=== PATIENT | female | born 1970 | race Caucasian/White ===

== ENCOUNTER 2016-09-01 03:47 | Emergency (ER) | payer MEDICAID, OTHER ==
[~2016-09-01] VITALS: Ht 160 cm; Wt 75.0 kg
[~2016-09-01 03:47] MED LIST: CIPR-278 PO; GABA-531 PO; INSU100V12 SQ; LEVE250T55 PO; LISI-662 PO; METF500T4 PO
[2016-09-01 04:02] LABS: GLUCOSE,POINT OF CARE 171 MG/DL (70-110)
[2016-09-01] MEDS ORDERED: BUTA1CAP51 PO (04:06)
[2016-09-01 06:05] VITALS: BP 132/81
== END 2016-09-01 06:44 | disposition home or self-care (01) ==
LOC: EMS 03:48
DX: S46.911A Strain of unspecified muscle, fascia and tendon at shoulder and upper arm level, right arm, initial encounter (principal); S50.12XA Contusion of left forearm, initial encounter; R10.30 Lower abdominal pain, unspecified; G40.909 Epilepsy, unspecified, not intractable, without status epilepticus; E11.65 Type 2 diabetes mellitus with hyperglycemia; I10 Essential (primary) hypertension; Z79.4 Long term (current) use of insulin; Z88.1 Allergy status to other antibiotic agents; W19.XXXA Unspecified fall, initial encounter; Y93.89 Activity, other specified; Y92.89 Other specified places as the place of occurrence of the external cause; Y99.8 Other external cause status
CPT/HCPCS: 82962; 99282; 99283

== ENCOUNTER 2017-03-05 07:57 | Emergency (ER) | payer OTHER ==
[~2017-03-05] VITALS: Ht 165.1 cm; Wt 75.0 kg
[~2017-03-05 07:57] MED LIST changes: +BUTA1CAP51 PO; -CIPR-278 PO
[2017-03-05 08:12] LABS: GLUCOSE,POINT OF CARE 282 MG/DL (70-110)
[2017-03-05 13:53] VITALS: BP 165/92
== END 2017-03-05 13:55 | disposition home or self-care (01) ==
LOC: EMS 07:58
DX: M79.641 Pain in right hand (principal); E11.9 Type 2 diabetes mellitus without complications; I10 Essential (primary) hypertension; Z88.1 Allergy status to other antibiotic agents
CPT/HCPCS: 82962; 99284

== ENCOUNTER 2017-04-25 18:04 | Inpatient (IN) | payer MEDICARE, MEDICAID ==
[~2017-04-25] VITALS: Ht 162.6 cm; Wt 90.3 kg
[~2017-04-25 18:04] MED LIST changes: -BUTA1CAP51 PO; -GABA-531 PO; -INSU100V12 SQ; -LISI-662 PO
[2017-04-25 22:47] LABS: GLUCOSE,POINT OF CARE 112 MG/DL (70-110)
[2017-04-25 22:59] VITALS: BP 123/76
[2017-04-25] MEDS ORDERED: HALOPERIDOL 5 MG TABLET PO PRN (23:15)
[2017-04-25] MEDS ORDERED: LORazepam 2 MG TABLET PO PRN (23:15)
[2017-04-26] MEDS ORDERED: DEXTROSE 50%-WATER 25 GM/50 ML SYRINGE IVP PRN (06:15)
[2017-04-26 06:17] VITALS: BP 137/81
[2017-04-26 06:17] LABS: GLUCOSE COMMENT 1 Doctor Notified; GLUCOSE,POINT OF CARE 141 MG/DL (70-110)
[2017-04-26 06:59] LABS: BASOPHILS # (AUTO) 0.03 K/uL (0.00-0.20); BASOPHILS % (AUTO) 0.3 % (0.0-2.0); EOSINOPHILS # (AUTO) 0.22 K/uL (0.00-0.70); EOSINOPHILS % (AUTO) 2.34 % (1.0-6.0); HEMATOCRIT 34.2 % (36-46); HEMOGLOBIN 10.9 g/dL (12.0-16.0); LYMPHOCYTES # (AUTO) 2.8 K/uL (1.0-4.8); LYMPHOCYTES % (AUTO) 30.3 % (22.0-44.0); MEAN CORPUSCULAR HEMOGLOBIN 24.9 pg (26.0-34.0); MEAN CORPUSCULAR HGB CONC 31.9 G/dL (31.0-37.0); MEAN CORPUSCULAR VOLUME 78 fL (80-100); MONOCYTES # (AUTO) 0.8 K/uL (0.1-1.0); MONOCYTES % (AUTO) 8.5 % (2.0-9.0); NEUTROPHILS # (AUTO) 5.4 K/uL (1.8-7.7); NEUTROPHILS % (AUTO) 58.6 % (40.0-70.0); PLATELET COUNT (AUTO) 236 K/uL (150-450); RED BLOOD CELL COUNT(AUTO) 4.38 MIL/uL (4.00-5.20); RED CELL DISTRIBUTION WIDTH 17.9 % (11.5-14.5); WHITE BLOOD COUNT (AUTO) 9.2 K/uL (4.5-11.0)
[2017-04-26] MEDS: FERROUS SULFATE 325 MG EC TABLET PO SCH ×2 (06:59→18:51)
[2017-04-26] MEDS: MetFORMIN HCL 500 MG TABLET PO SCH ×2 (06:59→18:51)
[2017-04-26] MEDS: GlipiZIDE ER 2.5 MG ER TABLET PO SCH ×2 (07:00→17:09)
[2017-04-26] MEDS: INSULIN ASPART 100 UNITS/ML SQ PRN ×3 (07:03→21:42)
[2017-04-26 07:22] LABS: ALANINE AMINOTRANSFERASE 135 U/L (12-78); ALBUMIN 2.9 g/dL (3.4-5.0); ANION GAP 5 mmol/L (8-16); ASPARTATE AMINOTRANSFERASE 100 U/L (15-37); BILIRUBIN,TOTAL 0.2 mg/dL (0.1-1.0); CALCIUM, TOTAL 9.1 mg/dL (8.8-10.5); CARBON DIOXIDE 27 mmol/L (22-29); CHLORIDE 101 mmol/L (98-107); CHOL/HDL RATIO 3.7 (3.9-5.7); CREATININE 0.87 mg/dL (0.60-1.30); GLOMERULAR FILTR. RATE CALC > 60 mL/min (>60); POTASSIUM 4.6 mmol/L (3.5-5.1); SODIUM SERUM 133 mmol/L (136-145); TOTAL PROTEIN, SERUM 7.8 g/dL (6.4-8.2); UREA NITROGEN, BLOOD 28 mg/dL (7-18)
[2017-04-26 07:36] LABS: HEMOGLOBIN A1C 11.7 % (4.5-6.2)
[2017-04-26 07:46] LABS: RBC MORPHOLOGY COMMENT ABNORMAL RBC MORPH
[2017-04-26 08:55] VITALS: BP 132/82
[2017-04-26] MEDS ORDERED: ACETAMINOPHEN 325 MG TABLET PO PRN (10:45)
[2017-04-26 11:12] LABS: GLUCOSE,POINT OF CARE 80 MG/DL (70-110)
[2017-04-26] MEDS: THIAMINE HCL 100 MG TABLET PO SCH (11:41)
[2017-04-26] MEDS: MULTIVITAMINS, THERAPEUTIC TABLET PO SCH (11:41)
[2017-04-26] MEDS: MUPIROCIN CALCIUM 2% 22 GM OINTMENT NASAL SCH ×2 (11:42→17:09)
[2017-04-26] MEDS: LevETIRAcetam 500 MG TABLET PO SCH ×2 (11:42→17:10)
[2017-04-26] MEDS: PANTOPRAZOLE SODIUM 40 MG DR TABLET PO SCH (11:42)
[2017-04-26] MEDS: LEVOFLOXACIN 500 MG TABLET PO SCH (11:42)
[2017-04-26 17:07] LABS: GLUCOSE COMMENT 1 Received Meds; GLUCOSE,POINT OF CARE 219 MG/DL (70-110)
[2017-04-26 19:36] VITALS: BP 144/75
[2017-04-26] MEDS: CITALOPRAM HYDROBROMIDE 20 MG TABLET PO SCH (21:35)
[2017-04-26 21:40] VITALS: BP 135/68
[2017-04-26 21:42] LABS: GLUCOSE COMMENT 1 Received Meds; GLUCOSE,POINT OF CARE 209 MG/DL (70-110)
[2017-04-27 06:08] LABS: GLUCOSE COMMENT 1 Received Meds; GLUCOSE,POINT OF CARE 147 MG/DL (70-110)
[2017-04-27] MEDS: GlipiZIDE ER 2.5 MG ER TABLET PO SCH ×2 (06:28→17:00)
[2017-04-27] MEDS: FERROUS SULFATE 325 MG EC TABLET PO SCH ×2 (06:28→17:10)
[2017-04-27] MEDS: MetFORMIN HCL 500 MG TABLET PO SCH ×2 (06:28→20:00)
[2017-04-27] MEDS: INSULIN ASPART 100 UNITS/ML SQ PRN ×3 (06:52→21:27)
[2017-04-27 07:12] VITALS: BP 143/71
[2017-04-27] MEDS: IBUPROFEN 400 MG TABLET PO PRN (07:15)
[2017-04-27 07:41] LABS: ANION GAP 7 mmol/L (8-16); CARBON DIOXIDE 25 mmol/L (22-29); CHLORIDE 102 mmol/L (98-107); CREATININE 0.76 mg/dL (0.60-1.30); GLOMERULAR FILTR. RATE CALC > 60 mL/min (>60); POTASSIUM 4.4 mmol/L (3.5-5.1); SODIUM SERUM 134 mmol/L (136-145); UREA NITROGEN, BLOOD 27 mg/dL (7-18)
[2017-04-27] MEDS: LEVOFLOXACIN 500 MG TABLET PO SCH (10:03)
[2017-04-27] MEDS: THIAMINE HCL 100 MG TABLET PO SCH (10:03)
[2017-04-27] MEDS: SERTRALINE HCL 50 MG TABLET PO SCH (10:03)
[2017-04-27] MEDS: LevETIRAcetam 500 MG TABLET PO SCH ×2 (10:03→17:10)
[2017-04-27] MEDS: MULTIVITAMINS, THERAPEUTIC TABLET PO SCH (10:03)
[2017-04-27] MEDS: PANTOPRAZOLE SODIUM 40 MG DR TABLET PO SCH (10:03)
[2017-04-27] MEDS: MUPIROCIN CALCIUM 2% 22 GM OINTMENT NASAL SCH ×2 (10:11→17:10)
[2017-04-27 11:32] LABS: GLUCOSE,POINT OF CARE 222 MG/DL (70-110)
[2017-04-27 12:26] LABS: HEPATITIS Bs ANTIGEN SCREEN P Negative (Negative); HEPATITIS C AB SCREEN <0.1 s/co ratio (0.0-0.9)
[2017-04-27 17:07] LABS: GLUCOSE,POINT OF CARE 94 MG/DL (70-110)
[2017-04-27 17:13] LABS: ADD UA MICROSCOPIC YES; APPEARANCE,URINE CLOUDY (CLEAR); GLUCOSE, URINE (UA) NEGATIVE (NEGATIVE); KETONES,URINE NEGATIVE (NEGATIVE); LEUKOCYTE ESTERASE ,URINE NEGATIVE (NEGATIVE); OCCULT BLOOD,URINE NEGATIVE (NEGATIVE); PH,URINE 5.5 (5.0-8.0); PROTEIN,URINE SEE CONFIRM (NEGATIVE)
[2017-04-27 17:21] LABS: SULFOSALICYLIC ACID,URINE 2+ (Negative)
[2017-04-27 17:22] LABS: SQUAMOUS EPITHELIAL CELL,UR Moderate /LPF (None Seen)
[2017-04-27 17:24] LABS: RBC,URINE 0-2 /HPF (0-2)
[2017-04-27 20:34] VITALS: BP 122/65
[2017-04-27 21:23] LABS: GLUCOSE COMMENT 1 Received Meds; GLUCOSE,POINT OF CARE 176 MG/DL (70-110)
[2017-04-27] MEDS: CITALOPRAM HYDROBROMIDE 20 MG TABLET PO SCH (21:26)
[2017-04-27] MEDS: ZOLPIDEM TARTRATE 10 MG TABLET PO PRN (22:12)
[2017-04-28 05:58] LABS: GLUCOSE COMMENT 1 Juice/Food/D50 Given; GLUCOSE COMMENT 2 Received Meds; GLUCOSE,POINT OF CARE 142 MG/DL (70-110)
[2017-04-28] MEDS: FERROUS SULFATE 325 MG EC TABLET PO SCH ×2 (07:01→17:40)
[2017-04-28] MEDS: MetFORMIN HCL 500 MG TABLET PO SCH ×2 (07:01→17:40)
[2017-04-28] MEDS: GlipiZIDE ER 2.5 MG ER TABLET PO SCH ×2 (07:02→17:12)
[2017-04-28] MEDS: INSULIN ASPART 100 UNITS/ML SQ PRN ×3 (07:09→21:30)
[2017-04-28 08:00] VITALS: BP 122/59
[2017-04-28 08:30] VITALS: BP 127/66
[2017-04-28] MEDS: LEVOFLOXACIN 500 MG TABLET PO SCH (09:48)
[2017-04-28] MEDS: SERTRALINE HCL 50 MG TABLET PO SCH (09:49)
[2017-04-28] MEDS: LevETIRAcetam 500 MG TABLET PO SCH ×2 (09:49→17:13)
[2017-04-28] MEDS: THIAMINE HCL 100 MG TABLET PO SCH (09:49)
[2017-04-28] MEDS: PANTOPRAZOLE SODIUM 40 MG DR TABLET PO SCH (09:49)
[2017-04-28] MEDS: MULTIVITAMINS, THERAPEUTIC TABLET PO SCH (09:49)
[2017-04-28] MEDS: MUPIROCIN CALCIUM 2% 22 GM OINTMENT NASAL SCH ×2 (09:55→17:11)
[2017-04-28 11:43] LABS: GLUCOSE,POINT OF CARE 158 MG/DL (70-110)
[2017-04-28] MEDS ORDERED: LACTULOSE 20 GM/30 ML SOLUTION UDCUP PO PRN (14:15)
[2017-04-28 17:17] LABS: GLUCOSE COMMENT 1 Received Meds; GLUCOSE,POINT OF CARE 131 MG/DL (70-110)
[2017-04-28 20:59] VITALS: BP 121/75
[2017-04-28] MEDS: CITALOPRAM HYDROBROMIDE 20 MG TABLET PO SCH (21:29)
[2017-04-28] MEDS: ZOLPIDEM TARTRATE 10 MG TABLET PO PRN (21:29)
[2017-04-28 21:37] LABS: GLUCOSE COMMENT 1 Received Meds; GLUCOSE,POINT OF CARE 177 MG/DL (70-110)
[2017-04-29 00:23] VITALS: BP 126/81
[2017-04-29 05:48] LABS: GLUCOSE,POINT OF CARE 145 MG/DL (70-110)
[2017-04-29 06:24] LABS: ANION GAP 6 mmol/L (8-16); CALCIUM, TOTAL 8.3 mg/dL (8.8-10.5); CARBON DIOXIDE 27 mmol/L (22-29); CHLORIDE 105 mmol/L (98-107); CREATININE 0.79 mg/dL (0.60-1.30); GLOMERULAR FILTR. RATE CALC > 60 mL/min (>60); POTASSIUM 4.7 mmol/L (3.5-5.1); SODIUM SERUM 138 mmol/L (136-145); UREA NITROGEN, BLOOD 23 mg/dL (7-18)
[2017-04-29] MEDS: GlipiZIDE ER 2.5 MG ER TABLET PO SCH ×2 (07:16→17:28)
[2017-04-29] MEDS: MetFORMIN HCL 500 MG TABLET PO SCH ×2 (07:16→17:28)
[2017-04-29] MEDS: FERROUS SULFATE 325 MG EC TABLET PO SCH ×2 (07:16→17:27)
[2017-04-29] MEDS: INSULIN ASPART 100 UNITS/ML SQ PRN ×2 (07:19→11:58)
[2017-04-29 08:30] VITALS: BP 125/75
[2017-04-29] MEDS: MULTIVITAMINS, THERAPEUTIC TABLET PO SCH (09:12)
[2017-04-29] MEDS: PANTOPRAZOLE SODIUM 40 MG DR TABLET PO SCH (09:12)
[2017-04-29] MEDS: SERTRALINE HCL 50 MG TABLET PO SCH (09:12)
[2017-04-29] MEDS: LEVOFLOXACIN 500 MG TABLET PO SCH (09:12)
[2017-04-29] MEDS: THIAMINE HCL 100 MG TABLET PO SCH (09:13)
[2017-04-29] MEDS: LevETIRAcetam 500 MG TABLET PO SCH ×2 (09:14→17:27)
[2017-04-29] MEDS: MUPIROCIN CALCIUM 2% 22 GM OINTMENT NASAL SCH ×2 (09:15→17:28)
[2017-04-29 11:43] LABS: GLUCOSE,POINT OF CARE 152 MG/DL (70-110)
[2017-04-29] MEDS: IBUPROFEN 400 MG TABLET PO PRN (11:51)
[2017-04-29 17:32] LABS: GLUCOSE,POINT OF CARE 134 MG/DL (70-110)
[2017-04-29 18:11] VITALS: BP 123/78
[2017-04-29 20:32] LABS: GLUCOSE,POINT OF CARE 97 MG/DL (70-110)
[2017-04-29] MEDS ORDERED: CITALOPRAM HYDROBROMIDE 20 MG TABLET PO SCH (21:00)
[2017-04-29] MEDS: ZOLPIDEM TARTRATE 10 MG TABLET PO PRN (21:24)
[2017-04-30 05:57] VITALS: BP 123/76
[2017-04-30 05:58] LABS: GLUCOSE,POINT OF CARE 111 MG/DL (70-110)
[2017-04-30] MEDS: IBUPROFEN 400 MG TABLET PO PRN (06:02)
[2017-04-30] MEDS: INSULIN ASPART 100 UNITS/ML SQ PRN ×2 (06:43→11:26)
[2017-04-30] MEDS: FERROUS SULFATE 325 MG EC TABLET PO SCH (06:52)
[2017-04-30] MEDS: MetFORMIN HCL 500 MG TABLET PO SCH (06:52)
[2017-04-30] MEDS: GlipiZIDE ER 2.5 MG ER TABLET PO SCH (06:52)
[2017-04-30 08:30] VITALS: BP 136/69
[2017-04-30] MEDS: THIAMINE HCL 100 MG TABLET PO SCH (08:56)
[2017-04-30] MEDS: MULTIVITAMINS, THERAPEUTIC TABLET PO SCH (08:56)
[2017-04-30] MEDS: LevETIRAcetam 500 MG TABLET PO SCH (08:56)
[2017-04-30] MEDS: PANTOPRAZOLE SODIUM 40 MG DR TABLET PO SCH (08:57)
[2017-04-30 11:23] LABS: GLUCOSE,POINT OF CARE 209 MG/DL (70-110)
[2017-04-30] MEDS ORDERED: CITA20TA9 PO (14:44)
[2017-04-30] MEDS ORDERED: FERR-89 PO (14:46)
[2017-04-30] MEDS ORDERED: PANT40TA25 PO (14:46)
[2017-04-30] MEDS ORDERED: GLIP2.5ER PO (14:47)
== END 2017-04-30 16:50 | DRG 885 ==
LOC: 3EI 22:10
PROVIDERS: ADMIT Psychiatry & Neurology Psychiatry; ATTEND Psychiatry & Neurology Psychiatry
DX: F33.2 Major depressive disorder, recurrent severe without psychotic features (principal); E87.1 Hypo-osmolality and hyponatremia; R45.851 Suicidal ideations; E11.9 Type 2 diabetes mellitus without complications; E88.09 Other disorders of plasma-protein metabolism, not elsewhere classified; G40.209 Localization-related (focal) (partial) symptomatic epilepsy and epileptic syndromes with complex partial seizures, not intractable, without status epilepticus; F15.10 Other stimulant abuse, uncomplicated; D64.9 Anemia, unspecified; F41.9 Anxiety disorder, unspecified; R74.0 Nonspecific elevation of levels of transaminase and lactic acid dehydrogenase [LDH]; Z89.511 Acquired absence of right leg below knee; Z91.5 Personal history of self-harm; Z81.8 Family history of other mental and behavioral disorders; Z72.89 Other problems related to lifestyle
CPT/HCPCS: 80074; 80307; 82962; 83036; 87081; 99285

== ENCOUNTER 2020-07-31 15:31 | Emergency (ER) | payer MEDICARE, OTHER ==
[~2020-07-31] VITALS: Ht 157.5 cm; Wt 70.5 kg
[~2020-07-31 15:31] MED LIST changes: +CITA-144 PO; +FERR-89 PO; +GLIP2.5ER PO; +METF-960 PO; -METF500T4 PO; +PANT-31 PO
[2020-07-31 15:43] VITALS: BP 141/78
[2020-07-31] MEDS ORDERED: LORazepam 1 MG TABLET PO ONE (17:00)
== END 2020-07-31 20:12 | disposition home or self-care (01) ==
LOC: EMS 15:34
DX: F41.9 Anxiety disorder, unspecified (principal); I50.9 Heart failure, unspecified; F32.9 Major depressive disorder, single episode, unspecified; I10 Essential (primary) hypertension
CPT/HCPCS: 99283